=== PATIENT | female | born 1980 | race Caucasian/White ===

== ENCOUNTER 2023-02-14 10:22 | Outpatient (CLI) | payer BC, SELFPAY ==
--- NOTE | ~2023-02-14 | CT_ITS ---
EXAMINATION: CT abdomen pelvis w con DATE: 02/14/2023 11:56 INDICATION: Left lower quadrant abdominal pain. TECHNIQUE: Computed tomography (CT) of the abdomen and pelvis was performed with 100 mL Omnipaque-350 intravenous contrast. Automated exposure control and iterative reconstruction technique were employe d. The dose-length product was 1339.24 mGy-cm. COMPARISON: None FINDINGS: Lung bases are clear. Heart size is normal. No pericardial or pleural effusion. Liver, gallbladder, s pleen, pancreas, bilateral adrenal glands and kidneys are normal. Bowels including the appendix are n ormal. Bladder, anteverted uterus and bilateral adnexa are unremarkable. No free intraperitoneal gas or fluid. No pathologically enlarged abdominal or pelvic lymphadenopathy. Mild thoracic and lumbar sp ondylosis. IMPRESSION: 1. No acute intra-abdominal/pelvic process. Reviewed, dictated and finalized at location A.
[2023-02-14 10:38] LABS: Basophils Absolute Auto 0.09 K/mm3 (0.00-0.10); Basophils Percent Auto 1.5 % (0.0-1.0); Eosinophils Absolute Auto 0.46 K/mm3 (0.02-0.50); Eosinophils Percent Auto 7.4 % (1.0-6.0); Hematocrit 38.2 % (35.0-49.0); Hemoglobin 12.5 g/dL (12.0-15.0); Immature Granulocyte Absolute 0.01 K/mm3 (0.00-0.00); Immature Granulocyte Percent A 0.2 % (0.0-0.0); Lymphocytes Absolute Auto 1.81 K/mm3 (1.10-4.50); Lymphocytes Percent Auto 29.2 % (18.0-42.0); Mean Corpuscular HGB Conc 32.7 g/dL (32.0-36.0); Mean Corpuscular Hemoglobin 29.4 pg (27.0-31.0); Mean Corpuscular Volume 89.9 fL (78.0-102.0); Monocytes Absolute Auto 0.75 K/mm3 (0.10-0.90); Monocytes Percent Auto 12.1 % (2.0-11.0); Neutrophils Absolute Auto 3.1 K/mm3 (1.7-7.2); Neutrophils Percent Auto 49.6 % (50.0-70.0); Platelet Count Result 326 K/mm3 (150-420); Red Blood Count 4.25 M/mm3 (4.20-5.40); Red Cell Distribution Width 13.2 % (11.6-14.4); White Blood Count 6.2 K/mm3 (4.8-10.8)
[2023-02-14 10:55] LABS: Alanine Aminotransferase 23 U/L (14-59); Albumin Level 3.6 g/dL (3.4-5.0); Alkaline Phosphatase 65 U/L (46-116); Anion Gap 7 mmol/L (8-16); Aspartate Amino Transferase 20 U/L (15-37); Bilirubin,Total 0.4 mg/dL (0.00-1.00); Blood Urea Nitrogen 15 mg/dL (7-18); Calcium 9.2 mg/dL (8.5-10.1); Carbon Dioxide 30 mmol/L (21-32); Chloride 102 mmol/L (98-108); Estimated Glomerular Filt Rate > 60; Glucose 108 mg/dL (70-99); Osmolality Calculated 289 mOsm/kg (285-295); Potassium 3.9 mmol/L (3.5-5.1); Sodium 139 mmol/L (136-145); Total Protein 7.2 g/dL (6.4-8.2)
== END 2023-02-14 10:23 | disposition home or self-care (01) ==
LOC: CHSLAB 10:25
PROVIDERS: PCP Family Medicine; Visit Provider Physician Assistant
DX: R10.32 Left lower quadrant pain (principal)
CPT/HCPCS: 36415; 74177; 80053; 85025; 87086; Q9967

== ENCOUNTER 2023-08-13 08:32 | Outpatient (CLI) | payer BC, SELFPAY ==
--- NOTE | ~2023-08-13 | XR_ITS ---
Left foot Technique: AP, oblique, and lateral views were obtained. Clinical History: Pain Findings: No acute fracture or dislocation is seen. Osseous alignment is anatomic. Joint spaces are p reserved without erosive or degenerative change. Soft tissues are unremarkable. Impression: Unremarkable left foot radiographs. Reviewed, dictated and finalized at [facility]. TAL CALIBRATOR Impression: Unremarkable left foot radiographs.
== END 2023-08-13 08:33 | disposition home or self-care (01) ==
LOC: CHSIMG 08:34
PROVIDERS: PCP Family Medicine; Visit Provider Orthopaedic Surgery
DX: M79.672 Pain in left foot (principal)
CPT/HCPCS: 73630

== ENCOUNTER 2023-09-17 20:00 | Emergency (ER) | payer BC, SELFPAY ==
--- NOTE | ~2023-09-17 | XR_ITS ---
EXAM: XR hand RT min 3V DATE: 09/17/2023 21:25 HISTORY: pain and swelling after a crush . COMPARISON: None available. FINDINGS: Normal mineralization. No fracture or dislocation. No lytic or blastic lesion. Joint space s are maintained. No erosion or periosteal change. Soft tissues within normal limits. IMPRESSION: No acute osseous finding in the right hand. Reviewed, dictated and finalized at location K.
[2023-09-17 20:28] VITALS: BP 137/101; PULSE 70; RESP 18; TEMP 36.5; O2SAT 96
--- NOTE | 2023-09-17 20:36 | ED.GENADULT ---
HPI - General Adult General Chief complaint: Wound/Laceration Stated complaint: upper extremity injury, right Time Seen by Provider: 09/17/23 20:05 History of Present Illness HPI narrative: Jessi presented to clinic with a laceration on her left hand. Her dog (over 100 lbs) jumped into her jeep and landed on her hand. It resulted in a 3cm laceration and a lot of pain and swelling over her knuckles. No other injuries reported. Related Data Allergies Allergy/AdvReac Type Severity Reaction Status Date / Time Penicillins Allergy Mild Hives Verified 08/13/23 13:48 sulfate Allergy Mild Rash Uncoded 08/13/23 13:49 Review of Systems Review of Systems: All systems reviewed & are unremarkable except as noted in HPI and below PMFSH Past Medical History Medical History Osteochondral lesion of talar dome Surgical History Surgical History History of foot surgery History of hand surgery Family History Family History Unknown Asthma Lung disease Cerebrovascular accident Breast cancer Social History Social History Social History: caffeine use Smoking status: Never smoker Alcohol intake: current Drinks per week: 5 Occupation/Education: occupation 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 Gender identity (if verbalized by the patient): Female Exam Const: General: cooperative, healthy appearing, comfortable, no acute distress, well developed, alert, awake and Physically active Orientation/consciousness: oriented to person, oriented to place and oriented to time HENMT: Head: normal to inspection, normocephalic and atraumatic Ears: hearing grossly normal bilaterally and external ears normal Face/Nose/Sinus: Normal external nose present Eyes: General: appearance normal, both eyes and all related structures Periorbital: periorbital findings normal Sclera: sclerae normal Pupils: Equal, round and reactive pupils present Neck: Neck: normal visual inspection Chest: Chest palpation & inspection: normal inspection of the chest Resp: Effort & Inspection: normal respiratory effort, able to speak in complete sentences and no respiratory distress Cardio: Jugular venous distension: no JVD Skin: General skin exam: normal color and no rashes or lesions noted Neuro: General: oriented to person, oriented to place and oriented to time Cranial nerves: Yes Equal, round and reactive pupils present Extrem: General: normal to inspection Other: contusion over the 3rd and 4th knuckles of the right hand. 3 cm Laceration between the 3rd and 4th knuckles Course Course Emergency Course: Ordered radiographs. She declined pain medications. EXAM:? XR hand RT min 3V DATE: 09/17/2023 21:25 HISTORY: pain and swelling after a crush . COMPARISON:? None available. FINDINGS:? Normal mineralization. No fracture or dislocation. No lytic or blastic lesion. Joint spaces are maintained. No erosion or periosteal change. Soft tissues within normal limits. IMPRESSION: No acute osseous finding in the right hand. Vital Signs Vital signs: Vital Signs Temperature 97.7 F 09/17/23 20:28 Pulse Rate 70 09/17/23 20:28 Respiratory Rate 18 09/17/23 20:28 Blood Pressure 137/101 H 09/17/23 20:28 Pulse Oximetry 96 09/17/23 20:28 Oxygen Delivery Room Air 09/17/23 20:28 Temperature 97.9 F 09/17/23 22:13 Pulse Rate 62 09/17/23 22:13 Respiratory Rate 18 09/17/23 22:13 Blood Pressure 124/86 09/17/23 22:13 Pulse Oximetry 99 09/17/23 22:13 Oxygen Delivery Room Air 09/17/23 22:13 Procedures Laceration Laceration 1: Date: 09/17/23 Time: 21:01 Site: other (right hand) Side (If applicable): right Size (cm): 3 Description: linear
[2023-09-17] MEDS: LIDOCAINE HCL 1% LOCAL INJ 10 ML VIAL INFILTRATE (20:55)
--- NOTE | 2023-09-17 20:55 | PC.NURSE ---
Dr. Ramon at bedside for suturing of patient wound.
--- NOTE | 2023-09-17 21:43 | PC.NURSE ---
patient awake and alert resting upright on stretcher without distress. update provided including awaiting results of imaging prior to DC. patient verbalized understanding. denies further needs currently. call light within reach.
[2023-09-17 22:13] VITALS: BP 124/86; PULSE 62; RESP 18; TEMP 36.6; O2SAT 99
== END 2023-09-17 23:05 | disposition home or self-care (01) ==
PROVIDERS: Emergency Provider Family Medicine; PCP Family Medicine
DX: S60.511A Abrasion of right hand, initial encounter (principal); T14.90XA Injury, unspecified, initial encounter
CPT/HCPCS: 12002; 73130; 99283

== ENCOUNTER 2024-03-10 09:34 | Outpatient (CLI) | payer BC, SELFPAY ==
--- NOTE | 2024-03-10 09:40 | ECG_ITS ---
Test Date: 2024-03-10 09:49:01 Measurements Intervals [place] Rate: 59 P: 33 [place]: 133 QRS: 67 QRSD: 91 T: 72 QT: 406 QTc: 403 Interpretive Statements SINUS BRADYCARDIA BORDERLINE ECG No previous ECG available for comparison Electronically Signed On 03-10-2024 12:18:01 CDT by Daniel Richter D.O.
--- NOTE | 2024-03-10 09:40 | EST_ITS ---
Patient Info Name: Jessi Rush Age: 43 years : 1980 Gender: Female Ht: 69 in Wt: 255 lbs BSA: 2.42 m2 HR: 69 bpm BP: 149 / 87 mmHg Heart Rhythm: Sinus Rhythm Technical Quality: Good Exam Date: 03/10/2024 10:03 AM Exam Location: Echo Lab Patient Status: Outpatient Admit Date: 03/10/2024 Staff Ordering Physician: Gume, Capo ROMANO Attending Provider: Gume, Capo ROMANO Exam Type: CA stress test treadmill Study Info A treadmill exercise stress test was performed. History/Risk Factors Hypertension: Yes Summary 1. 1. Negative Marcin exercise stress test for ischemic ST changes by ECG criteria. 2. 2. Good functional capacity, achieving 10 METs of workload. 3. 3. Baseline hypertension. 4. 4. Appropriate HR response to exercise. 5. 5. Appropriate HR recovery at 1 minute post exercise. 6. 6. No imaging with stress testing. Protocol: Marcin Stress ECG Details Stage: REST Duration (min): 1 min : 33 sec Speed (mph): 0.0 Grade (%): 0 HR (bpm): 65 SBP (mmHg): 149 DBP (mmHg): 87 METS: --- Stage: REST Duration (min): 4 min : 13 sec Speed (mph): 0.0 Grade (%): 0 HR (bpm): 83 SBP (mmHg): 149 DBP (mmHg): 87 METS: --- Stage: STAGE 1 Duration (min): 1 min : 0 sec Speed (mph): 1.7 Grade (%): 10 HR (bpm): 111 SBP (mmHg): 149 DBP (mmHg): 87 METS: --- Stage: STAGE 1 Duration (min): 2 min : 0 sec Speed (mph): 1.7 Grade (%): 10 HR (bpm): 118 SBP (mmHg): 149 DBP (mmHg): 87 METS: --- Stage: STAGE 1 Duration (min): 3 min : 0 sec Speed (mph): 1.7 Grade (%): 10 HR (bpm): 127 SBP (mmHg): 143 DBP (mmHg): 75 METS: --- Stage: STAGE 2 Duration (min): 1 min : 0 sec Speed (mph): 2.5 Grade (%): 12 HR (bpm): 142 SBP (mmHg): 143 DBP (mmHg): 75 METS: --- Stage: STAGE 2 Duration (min): 2 min : 0 sec Speed (mph): 2.5 Grade (%): 12 HR (bpm): 139 SBP (mmHg): 143 DBP (mmHg): 75 METS: --- Stage: STAGE 2 Duration (min): 3 min : 0 sec Speed (mph): 2.5 Grade (%): 12 HR (bpm): 150 SBP (mmHg): 143 DBP (mmHg): 75 METS: --- Stage: STAGE 3 Duration (min): 1 min : 0 sec Speed (mph): 3.4 Grade (%): 14 HR (bpm): 166 SBP (mmHg): 112 DBP (mmHg): 48 METS: --- Stage: STAGE 3 Duration (min): 2 min : 0 sec Speed (mph): 3.4 Grade (%): 14 HR (bpm): 171 SBP (mmHg): 112 DBP (mmHg): 48 METS: --- Stage: STAGE 3 Duration (min): 2 min : 10 sec Speed (mph): 3.4 Grade (%): 14 HR (bpm): 154 SBP (mmHg): 112 DBP (mmHg): 48 METS: --- Stage: RECOVERY Duration (min): 0 min : 49 sec Speed (mph): 0.0 Grade (%): 0 HR (bpm): 160 SBP (mmHg): 112 DBP (mmHg): 48 METS: --- Stage: RECOVERY Duration (min): 1 min : 49 sec Speed (mph): 0.0 Grade (%): 0 HR (bpm): 122 SBP (mmHg): 112 DBP (mmHg): 48 METS: --- Stage:
== END 2024-03-10 09:35 | disposition home or self-care (01) ==
PROVIDERS: PCP Family Medicine; Visit Provider Registered Nurse
DX: R07.9 Chest pain, unspecified (principal); R00.1 Bradycardia, unspecified
CPT/HCPCS: 93005; 93017

== ENCOUNTER 2024-03-20 14:23 | Outpatient (CLI) | payer BC, SELFPAY ==
--- NOTE | ~2024-03-20 | MM_ITS ---
EXAMINATION: MM screening kathy BI w vasiliy HISTORY: Screening TECHNIQUE: Craniocaudal and mediolateral oblique 3-D tomosynthesis images were obtained and synthetic 2-D images were generated. CAD analysis was submitted and interpreted. COMPARISON: No prior mammogram is available for comparison at this institution. BREAST PARENCHYMAL COMPOSITION: Not dense: There are scattered areas of fibroglandular density. FINDINGS: There is no evidence of suspicious mass, calcification, or architectural distortion to sugg est malignancy in either breast. There has been no suspicious interval change. IMPRESSION: 1. No mammographic evidence of malignancy. 2. Recommend routine screening mammography in one year. BI-RADS Category 1: Negative Reviewed, dictated and finalized at location B.
--- NOTE | 2024-03-20 14:43 | ECHO_ITS ---
Patient Info Name: Jessi Rush Age: 43 years : 1980 Gender: Female Ht: 68 in Wt: 258 lbs BSA: 2.42 m2 HR: 65 bpm BP: 154 / 69 mmHg Heart Rhythm: Sinus Rhythm Technical Quality: Good Exam Date: 03/20/2024 2:33 PM Exam Location: [facility] Patient Status: Outpatient Admit Date: 03/20/2024 Staff Ordering Physician: Gume, Capo ROMANO Photo Print Specialist: Jn Martins RDCS Attending Provider: Gume, Capo ROMANO Exam Type: CA echo doppler color flow Study Info Indications - CHEST PAIN Complete two-dimensional, color flow and Doppler transthoracic echocardiogram is performed. History/Risk Factors Hypertension: Yes Summary 1. Complete two-dimensional, color flow and Doppler transthoracic echocardiogram is performed. 2. Left ventricular chamber dimension is mildly enlarged. 3. Left ventricular systolic function is normal, estimated at 60-65%. 4. The left ventricular diastolic function is normal. 5. E/e' 6 is not elevated. 6. There is mild mitral valve regurgitation. 7. There is trace tricuspid valve regurgitation. 8. No pulmonary hypertension, estimated pulmonary arterial systolic pressure is 16 mmHg. Left Ventricle E/e' 6 is not elevated. Left ventricular chamber dimension is mildly enlarged. Left ventricular systolic function is normal, estimated at 60-65%. The left ventricular diastolic function is normal. Right Ventricle Right ventricular systolic function is normal and with normal TAPSE 3.1 cm. Right ventricular chamber dimension is normal. Left Atria Left atrial chamber dimension is normal. Right Atria Right atrial chamber dimension is normal. Aortic Valve The aortic valve is trileaflet. There is no aortic valve stenosis. There is no aortic valve regurgitation. Pulmonic Valve There is no pulmonic regurgitation. Mitral Valve There is no mitral valve stenosis. There is mild mitral valve regurgitation. Tricuspid Valve There is trace tricuspid valve regurgitation. No pulmonary hypertension, estimated pulmonary arterial systolic pressure is 16 mmHg. Pericardium/Pleural There is no pericardial effusion. Inferior Vena Cava Normal inferior vena cava with >50% collapse upon inspiration consistent with normal right atrial pressure, 5 mmHg. Aorta The aortic root size at the sinus of Valsalva is normal. Left Ventricular Outflow Tract Name Value Normal LVOT 2D LVOT Diameter 1.7 cm LVOT Doppler LVOT Peak Velocity 116 cm/s LVOT Peak Gradient 5 mmHg LVOT Mean Gradient 3 mmHg LVOT VTI 24 cm LVOT VTI/AV VTI Ratio 0.9 LVOT Stroke Volume 58 ml Pulmonic Valve Name Value Normal PV Doppler PV Peak Velocity 121 cm/s PV Peak Gradient 6 mmHg Mitral Valve
== END 2024-03-20 14:24 | disposition home or self-care (01) ==
LOC: CHSIMG 14:25
PROVIDERS: PCP Registered Nurse; Visit Provider Registered Nurse
DX: R07.9 Chest pain, unspecified (principal); Z12.31 Encounter for screening mammogram for malignant neoplasm of breast; I34.0 Nonrheumatic mitral (valve) insufficiency
CPT/HCPCS: 77063; 77067; 93306

== ENCOUNTER 2025-03-30 09:38 | Outpatient (CLI) | payer BC, SELFPAY ==
--- NOTE | ~2025-03-30 | XR_ITS ---
EXAMINATION: XR ankle LT min 3V, 03/30/2025 9:50 CDT HISTORY: M25.572 - Pain in left ankle and joints of left foot COMPARISON: No comparisons available. Findings: No acute fracture or malalignment. No significant degenerative changes. Soft tissues unremarkable. Impression: No acute fracture or malalignment. Reviewed, dictated and finalized at location P. Impression: No acute fracture or malalignment.
--- NOTE | ~2025-03-30 | XR_ITS ---
EXAMINATION: XR foot LT min 3V, 03/30/2025 9:50 CDT HISTORY: M79.672 - Pain in left foot COMPARISON: No comparisons available. Findings: No acute fracture or malalignment. Large calcaneal spur Soft tissues unremarkable. Impression: No acute fracture or malalignment. Reviewed, dictated and finalized at location P. Impression: No acute fracture or malalignment.
--- OUTSIDE RECORDS SUMMARY | 2025-03-30 10:20 | XMS_ITS | Clinical Summary ---
Author Organization [facility] Address [address] [place] [address] Care Team Providers Care Vice President Of Brand Management Name Role Phone Marcin Esposito MD Primary Care Provider Allergies Active Allergy Reactions Criticality Noted Date Comments Penicillins Hives 04/06/2022 Sulfa Antibiotics Hives 04/06/2022 Medications dextromethorphan -guaiFENesin (ROBITUSSIN-DM) 10-100 MG/5ML liquid Take 5 mLs by mouth every 12 (twelve) hours. Active Active Problems No known active problems Immunizations Immunization Administration Dates Next Due Tdap (Boostrix) 04/15/2022 Family History Medical History Relation Comments No Known Problems Brother COPD Father Breast Cancer Maternal Aunt Ovarian Cancer Maternal Grandmother Breast Cancer Mother No Known Problems Sister Relation Status Comments Brother Alive Father Maternal Aunt Maternal Grandmother Mother Alive Sister Alive Social History Tobacco Use Types Packs/Day Years Used Date Smoking Tobacco: Never Smokeless Tobacco: Never Tobacco Cessation:Counseling Given: Not Answered Alcohol Use Standard Drinks/Week Comments Yes 0 (1 standard drink = 0.6 oz pur e alcohol) occasional Comments No Sex and Gender Information Value Date Recorded Sex Assigned at Not on file Legal Sex Female 7:22 PM CDT Gender Identity Not on file Sexual Orientation Not on file Last Filed Vital Signs Vital Sign Reading Time Taken Comments Blood Pressure 159/100 11/11/2022 9:27 AM CDT Pulse 66 11/11/2022 9:27 AM CDT Temperature 36.6 C (97.8 F) 11/11/2022 9:27 AM CDT Respiratory Rate 16 11/11/2022 9:27 AM CDT Oxygen Saturation 97% 11/11/2022 9:27 AM CDT Inhaled Oxygen Concentration - - Weight 111.3 kg (245 lb 6.4 oz) 11/11/2022 9:27 AM CDT Height 172.7 cm (5' 8) 11/11/2022 9:27 AM CDT Body Mass Index 37.31 11/11/2022 9:27 AM CDT Plan of Treatment Health Maintenance Due Date Last Done Comments Cervical Cancer Screening Pap Smear (Age 30 to 64) Every 3 Years 1980 Colorectal Cancer Screening Colonoscopy (10 Years) 1980 Annual Physical 1981 Hepatitis C 1996 Hepatitis B Vaccines (1 of 3 - 19+ 3-dose series) 1997 Cervical Cancer Screening Pap with HPV Testing (Age 30 to 64) Every 5 Years 2008 Cervical Cancer Screening with HPV 2008 Mammogram Screening 03/27/2024 03/27/2022, 03/13/2022, 09/01/2020, Additional history exists COVID-19 Vaccine ( season) 2025 Influenza Adult (#1) 2025 DTaP, Tdap and Td Vaccines (2 - Td or Tdap) 04/15/2032 04/15/2022, 12/13/1983, 11/18/1979, Additional history exists Meningococcal B Vaccine Aged Out No l onger eligible based on patient's age to complete this topic Meningococcal Vaccine Aged Out No adri miguel eligible based on patient's age to complete this topic Pneumococcal Vaccine: Pediatrics (0 to 5 Years) and At-Risk Patients (6 to 49 Years) Aged Out No longer eligible based on patient's age to complete this topic RSV Immunizations Under 20 Months Aged Out No longer eligible based on patient's age to complete this topic Procedures Procedure Name Priority Date/Time Associated Diagnosis Comments MG DIAG W MILADIS LT DIGI Routine 03/27/2022 1:10 PM CDT Abnormal breast finding from Last 3 Months or Most Recently Relevant to Health Maintenance Results * MG DIAG W MILADIS LT DIGI (03/27/2022 1:10 PM CDT) Anatomical Region Laterality Modality Breast Left Mammography, Rad iographic Imaging 03/27/2022 2:33 PM CDT Impressions 03/27/2022 2:37 PM CDT IMPRESSION: Additional diagnostic imaging fails to disclose any suspicious abnormality. Routine follow-up in one year would now seem adequate. Recommendation: 1: Routine screening mammogram Bilateral in 1 Year Overall assessment: ACR BI-RADS Category 2 - Benign. Return for Routine Follow-Up: Yes Ordered By: СВЕТЛАНА OLIVARES Interpreted By: Leroy Funez MD, 03/27/2022 2:33 PM Narrative 03/27/2022 2:37 PM CDT Examination: Digital left diagnostic mammogram with CAD. [id number] Clinical history: Follow-up, abnormal screening mammogram. Comparison: 03/13/2022. Technique: True lateral and spot compression CC and MLO left digital mammograms. The exam was interpreted with the use of a computer-aided detection (CAD) system. Additional 3-D Tomosynthesis images were acquired. Tissue density: The breast tissue is heterogeneously dense. Findings: The patient returned for additional diagnostic imaging to further evaluate the focal opacity medially near the nipple axis identified at screening. The area in question changes substantially in configuration on the true lateral view. Under spot compression, there is subtotal effacement with no definite evidence of underlying mass, suspicious microcalcification or architectural distortion. Mixed fatty and moderately dense tissue background persists. Due to the density of the local tissue background it was elected to perform ultrasound. Benign-appearing calcifications elsewhere again evident. Examination: Left breast ultrasound. Technique:Grayscale and color Doppler images. Findings: Survey of the subareolar/periareolar region for evaluation of the central tissue core was performed encompassing the broad region of interest. There are scattered fibrocystic changes against an otherwise bland appearing tissue background concordant with the degree of mammographic density. No other sonographically discrete finding is identified. No sonographically suspicious abnormality is identified. Based on these findings, routine mammographic follow-up in one year would now seem adequate. These findings were discussed with the patient. Светлана Olivares MD MAMMO Final Resu lt from Last 3 Months or Most Recently Relevant to Health Maintenance Insurance [facility] [employer] [place] Care Teams Vice President Of Brand Management Relationship Specialty Start Date End Date Marcin Esposito MD [address] [place] [phone] PCP - General FAMILY PRACTICE 03/06/19
--- OUTSIDE RECORDS SUMMARY | 2025-03-30 10:20 | XMS_ITS | Encounter Summary ---
Author Organization [facility] Address [address] [place] [address] Care Team Providers Care Assistant Dean Of Students Name Role Phone Marcin Esposito MD Primary Care Provider [phone] Encounter Details Date Type Department Care Team (Late st Contact Info) Description 11/23/2018 Abstract SFL CONVERSION [address] [place] [address] , Generic Conversion, Social History Tobacco Use Types Packs/Day Years Used Date Smoking Tobacco: Never Assessed Comments Unknown Sex and Gender Information Value Date Recorded Sex Assigned at Not on file Legal Sex Female 7:22 PM CDT Gender Identity Not on file Sexual Orientation Not on file documented as of this encounter Plan of Treatment Not on file documented as of this encounter Visit Diagnoses Not on filedocumented in this encounter Care Teams Assistant Dean Of Students Relationship Specialty Start Date End Date Marcin Esposito MD [address] [place] [phone] PCP - General FAMILY PRACTICE 03/06/19 documented as of this encounter
== END 2025-03-30 09:39 | disposition home or self-care (01) ==
LOC: CHSIMG 09:41
PROVIDERS: PCP Family Medicine; Visit Provider Orthopaedic Surgery
DX: M79.672 Pain in left foot (principal)
CPT/HCPCS: 73610; 73630